=== PATIENT | male | born 1970 | race Two or more races ===

== ENCOUNTER 2023-04-16 02:44 | Emergency (ER) | payer OTHER ==
[~2023-04-16] VITALS: Ht 172.7 cm; Wt 88.5 kg
[2023-04-16] MEDS ORDERED: GLIPIZIDE XL5 MG PO (03:10)
[2023-04-16] MEDS ORDERED: GLUMETZA1000 MG PO (03:10)
[2023-04-16] MEDS ORDERED: PERCOCET 5-3251 EACH PO (03:11)
[2023-04-16] MEDS ORDERED: ZYNCOF 20-400120 ML PO (08:31)
== END 2023-04-16 08:48 ==
LOC: ER 02:44
DX: R05.8 Other specified cough (principal); Z91.013 Allergy to seafood; Z85.118 Personal history of other malignant neoplasm of bronchus and lung; Z20.822 Contact with and (suspected) exposure to COVID-19